=== PATIENT | male | born 1980 | race Hispanic/Latino ===

== ENCOUNTER 2019-08-08 08:55 | Emergency (ER) | payer BC, OTHER ==
[2019-08-08 10:16] LABS: BLOOD UREA NITROGEN,BUN 16 mg/dL (7.0-18.0); CARBON DIOXIDE,CO2 27.1 mmol/L (21.0-32.0); CHLORIDE,CL 105 mmol/L (98-107); GLUCOSE RANDOM 107 mg/dL (74-106); POTASSIUM,K 3.9 mmol/L (3.5-5.1); SODIUM,NA 141 mmol/L (136-148)
--- NOTE | 2019-08-08 10:18 | CR ---
Chest: Portable view of the chest was obtained. Comparison: No prior chest imaging is available. Heart size and mediastinum are within normal limits. Lungs are clear with no acute parenchymal change. Mild scoliosis is noted within the spine. Impression: 1. Findings as noted above. 2. Nothing acute is appreciated on portable chest x-ray. Diagnostic code #2 This report was dictated in [place] Standard Time
--- NOTE | 2019-08-08 10:50 | CT ---
Head CT Technique: Multiple axial sections through the brain were obtained. Intravenous contrast was not utilized. Comparison: No prior intracranial imaging is available. Findings: Ventricles along with basal cisterns and sulci over the convexities are within normal limits for the patient's age. No abnormal parenchymal densities are seen. No evidence of intracranial hemorrhage. No midline shift or mass-effect is seen. Bone window settings were reviewed. Visualized paranasal sinuses show nothing acute. Mastoid sinuses also show nothing acute. No acute calvarial abnormality is appreciated. Impression: 1. Nothing acute is appreciated on noncontrast head CT exam. Note: Please correlate if patient's symptoms warrant further evaluation by MRI. Diagnostic code #1 This report was dictated in [place] Standard Time
--- NOTE | 2019-08-08 11:40 | EDM.PDOC ---
ED HPI GENERAL MEDICAL PROBLEM - General Chief Complaint: Upper Extremity Injury/Pain Stated Complaint: ARM TINGLING Time Seen by Provider: 08/08/19 09:19 - History of Present Illness INITIAL COMMENTS - FREE TEXT/NARRATIVE: Complains of left arm numbness and tingling which began this morning. History of hypertension, but does not take medications. bp 162/113 at triage. Patient states he felt hot and dizzy this morning shortly after he woke up. He then began to have tingling and numbness in all digits of his left hand. The tingling and numbness ana towards his elbow, although it was confined to the ulnar half of his left forearm. The symptoms began at 6 AM and are still there. They have been continuous since onset. The tingling had no exacerbating or alleviating factors at home; it was worse here when the blood pressure cuff squeezed his arm to measure the blood pressure. It was not associated with speech slurring, muscle weakness, visual changes. There was a 1 out of 10 bifrontal headache with no photophobia, phonophobia, neck stiffness , focal weakness. He was diagnosed with hypertension several years ago. Stop blood pressure medicines, stating that someone told him his pressure was normal , so he did not take his medicines anymore. He states that allergic to aspirin ; as is him to have shortness of breath and palpitations, but no rash or swelling. 3 of stroke. Visit he smokes and drinks, but does not do drugs. Denies any visual changes today. - Related Data Allergies Allergy/AdvReac Type Severity Reaction Status Date / Time aspirin Allergy Anaphylactic Verified 08/08/19 09:02 Shock Home Meds: Home Meds . [No Known Home Meds] 08/08/19 [History] Past Medical History - Past Health History Medical/Surgical History: Denies Medical/Surgical History Cardiovascular History: Reports: Hypertension Other Cardiovascular History: does not take medications. - Infectious Disease History Infectious Disease History: Reports: None Social & Family History - Family History Family Medical History: Noncontributory - Tobacco Use Smoking Status *Q: Current Every Day Smoker Years of Tobacco use: 22 Packs/Tins Daily: 1 - Caffeine Use Caffeine Use: Reports: Coffee - Recreational Drug Use Recreational Drug Use: No Review of Systems - Review of Systems Review Of Systems: See Below (ROS negative for visual changes, speech slurring, focal muscle weakness, chest pain, palpitations. Review of systems positive for numbness and tingling in the left upper extremity, along with a headache.) ED EXAM, GENERAL - Physical Exam Exam: See Below Free Text/Narrative:: General: alert, well appearing, no acute distress HEENT: Atraumatic, normocephalic, pupils reactive, negative for conjunctival pallor or scleral icterus, mucous membranes moist, throat clear, Neck: supple, nontender, trachea midline. No carotid bruits Lungs: Clear to auscultation, breath sounds equal bilaterally, chest nontender. Heart: S1S2, regular, negative for clicks, rubs, or JVD. Abdomen: Soft, nondistended, nontender. Negative for masses or hepatosplenomegaly. Negative for costovertebral tenderness. Pelvis: Stable nontender. Skin: warm, dry, good turgor. Musculoskeletal: soft compartments. Extremities: Atraumatic, negative for cords or calf pain. Neurovascular unremarkable. Neuro: Awake, alert, oriented. GCS 15. Cranial nerves II through XII unremarkable. Subjectively, can perceive stimuli in all of left forearm, left hand, and left fingers. 2+ DTRs. Patient intact. No dysarthria. No aphasia. Visual min are intact. No motor or pronator drift. Cerebellum unremarkable. Motor and sensory unremarkable throughout. Exam nonfocal. Plan: Labs, head CT, EKG, . Course - Vital Signs Last Recorded V/S: Last Vital Signs Temp 97.8 F 08/08/19 12:02 Pulse 68 08/08/19 12:02 Resp 14 08/08/19 12:02 BP 138/79 08/08/19 12:02 Pulse Ox 97 08/08/19 12:02 - Orders/Labs/Meds Orders: Active Orders 24 hr Category Date Time Status EKG Documentation Completion [RC] STAT Care 08/08/19 09:25 Active Ready for Discharge [RC] PER UNIT ROUTINE Care 08/08/19 11:51 Active CBC: Normal INR: Normal CMP: No clinically significant abnormalities Troponin: Negative Urinalysis: Negative nitrite, leukocyte esterase, protein Ek bpm normal sinus rhythm normal axis normal WI, QRS, QTc intervals; no acute ST changes Chest x-ray: No cardiomegaly appreciated. No acute infiltrates. Head CT: No bleed, mass, shift Also, discussed blood pressure issue with patient. He has previously taken blood pressure medicine, but says he stopped it after someone told him his pressure was normal. I explained to him blood pressure medicine does not cure high blood pressure. Instead, it controls blood pressure on the days that you take it. However, if you stop taking it, your pressure goes up again. He verbalized understanding. He says he has no primary care doctor. 11:46am bp 135/84 neurolo intact. Agrees to f/u in clinic. REturn precautions given. Labs: Laboratory Tests 08/08/19 08/08/19 08/08/19 Range/Units 09:24 09:30 09:30 WBC 5.26 (4.0-11.0) K/uL RBC 5.02 (4.50-5.90) M/uL Hgb 15.9 (13.0-17.0) g/dL Hct 44.9 (38.0-50.0) % MCV 89.4 (80.0-98.0) fL MCH 31.7 (27.0-32.0) pg MCHC 35.4 (31.0-37.0) g/dL RDW Std Deviation 42.6 (28.0-62.0) fl RDW Coeff of Abigail 13 (11.0-15.0) % Plt Count 206 (150-400) K/uL MPV 9.70 (7.40-12.00) fL Neut % (Auto) 75.3 (48.0-80.0) % Lymph % (Auto) 17.1 (16.0-40.0) % Cedar % (Auto) 6.3 (0.0-15.0) % Eos % (Auto) 1.1 (0.0-7.0) % Baso % (Auto) 0.2 (0.0-1.5) % Neut # (Auto) 4.0 (1.4-5.7) K/uL Lymph # (Auto) 0.9 (0.6-2.4) K/uL Cedar # (Auto) 0.3 (0.0-0.8) K/uL Eos # (Auto) 0.1 (0.0-0.7) K/uL Baso # (Auto) 0.0 (0.0-0.1) K/uL Nucleated RBC % 0.0 /100WBC Nucleated RBCs # 0 K/uL INR 0.99 Sodium (136-148) mmol/L Potassium (3.5-5.1) mmol/L Chloride (98-107) mmol/L Carbon Dioxide (21.0-32.0) mmol/L BUN (7.0-18.0) mg/dL Creatinine (0.8-1.3) mg/dL Est Cr Clr Drug Dosing mL/min Estimated GFR (MDRD) ml/min Glucose (74-106) mg/dL Calcium (8.5-10.1) mg/dL Troponin I (0.000-0.056) ng/mL Urine Color YELLOW Urine Appearance CLEAR Urine pH 7.5 (5.0-8.0) Ur Specific [place] 1.010 (1.001-1.035) Urine Protein NEGATIVE (NEGATIVE) mg/dL Urine Glucose (UA) NEGATIVE (NEGATIVE) mg/dL Urine Ketones NEGATIVE (NEGATIVE) mg/dL Urine Occult Blood NEGATIVE (NEGATIVE) Urine Nitrite NEGATIVE (NEGATIVE) Urine Bilirubin NEGATIVE (NEGATIVE) Urine Urobilinogen 0.2 (<2.0) EU/dL Ur Leukocyte Esterase NEGATIVE (NEGATIVE) 08/08/19 Range/Units 09:30 WBC (4.0-11.0) K/uL RBC (4.50-5.90) M/uL Hgb (13.0-17.0) g/dL Hct (38.0-50.0) % MCV (80.0-98.0) fL MCH (27.0-32.0) pg MCHC (31.0-37.0) g/dL RDW Std Deviation (28.0-62.0) fl RDW Coeff of Abigail (11.0-15.0) % Plt Count (150-400) K/uL MPV (7.40-12.00) fL Neut % (Auto) (48.0-80.0) % Lymph % (Auto) (16.0-40.0) % Cedar % (Auto) (0.0-15.0) % Eos % (Auto) (0.0-7.0) % Baso % (Auto) (0.0-1.5) % Neut # (Auto) (1.4-5.7) K/uL Lymph # (Auto) (0.6-2.4) K/uL Cedar # (Auto) (0.0-0.8) K/uL Eos # (Auto) (0.0-0.7) K/uL Baso # (Auto) (0.0-0.1) K/uL Nucleated RBC % /100WBC Nucleated RBCs # K/uL INR Sodium 141 (136-148) mmol/L Potassium 3.9 (3.5-5.1) mmol/L Chloride 105 (98-107) mmol/L Carbon Dioxide 27.1 (21.0-32.0) mmol/L BUN 16 (7.0-18.0) mg/dL Creatinine 0.9 (0.8-1.3) mg/dL Est Cr Clr Drug Dosing 93.96 mL/min Estimated GFR (MDRD) > 60.0 ml/min Glucose 107 H (74-106) mg/dL Calcium 9.0 (8.5-10.1) mg/dL Troponin I < 0.050 (0.000-0.056) ng/mL Urine Color Urine Appearance Urine pH (5.0-8.0) Ur Specific [place] (1.001-1.035) Urine Protein (NEGATIVE) mg/dL Urine Glucose (UA) (NEGATIVE) mg/dL Urine Ketones (NEGATIVE) mg/dL Urine Occult Blood (NEGATIVE) Urine Nitrite (NEGATIVE) Urine Bilirubin (NEGATIVE) Urine Urobilinogen (<2.0) EU/dL Ur Leukocyte Esterase (NEGATIVE) Departure - Departure Time of Disposition: 11:48 Disposition: Home, Self-Care 01 Condition: Good Clinical Impression: Paresthesia, Hypertension - Discharge Information Instructions: Heart Disease Prevention, Paresthesia, [id number], Hypertension Referrals: PCP,None [Primary Care Provider] - 1 Day ([facility] - Internal Medicine [address] [place] [phone] ) Forms: ED Department Discharge Additional Instructions: Contact the internal medicine clinic and take the next available appointment. You need to have your blood pressure rechecked, and to see whether you need to go on blood pressure control medication. Additionally, you need to discuss whether or not you are developing risk factors for having a stroke. You had no evidence of one today, but are asked to return to the emergency department at once if you have any of the following: -Weakness -Trouble speaking; slurring your speech Trouble walking Any kind of new numbness or muscle weakness Please stop smoking. Doing so will decrease your risk of stroke, heart attack, and other forms of disease. The following information is given to patients seen in the emergency department who are being discharged to home. This information is to outline your options for follow-up care. We provide all patients seen in our emergency department with a follow-up referral. The need for follow-up, as well as the timing and circumstances, are variable depending upon the specifics of your emergency department visit. If you don't have a primary care physician on staff, we will provide you with a referral. We always advise you to contact your personal physician following an emergency department visit to inform them of the circumstance of the visit and for follow-up with them and/or the need for any referrals to a consulting specialist. The emergency department will also refer you to a specialist when appropriate. This referral assures that you have the opportunity for follow-up care with a specialist. All of these measure are taken in an effort to provide you with optimal care, which includes your follow-up. Under all circumstances we always encourage you to contact your private physician who remains a resource for coordinating your care. When calling for follow-up care, please make the office aware that this follow-up is from your recent emergency room visit. If for any reason you are refused follow-up, please contact the [facility] Emergency Department at and asked to speak to the emergency department charge nurse. Sepsis Event Note - Evaluation Sepsis Screening Result: No Definite Risk - Focused Exam Vital Signs: Vital Signs Temp Pulse Resp BP Pulse Ox 08/08/19 12:02 97.8 F 68 14 138/79 97 08/08/19 11:18 74 141/86 H 96 Date Exam was Performed: 08/08/19 Time Exam was Performed: 22:45 - My Orders Last 24 Hours: My Active Orders 08/08/19 09:25 EKG Documentation Completion [RC] STAT 08/08/19 11:51 Ready for Discharge [RC] PER UNIT ROUTINE - Assessment/Plan Last 24 Hours: My Active Orders 08/08/19 09:25 EKG Documentation Completion [RC] STAT 08/08/19 11:51 Ready for Discharge [RC] PER UNIT ROUTINE
== END 2019-08-08 12:13 | disposition home or self-care (01) ==
LOC: MW.ED 08:55
DX: R20.2 Paresthesia of skin (principal); I10 Essential (primary) hypertension; F17.210 Nicotine dependence, cigarettes, uncomplicated; Z88.6 Allergy status to analgesic agent
CPT/HCPCS: 36415; 70450; 70450-26; 71045; 71045-26; 80048; 81003; 84484; 85025; 85610; 93005; 99283; 99284-25